=== PATIENT | male | born 1960 | race Hispanic/Latino ===

== ENCOUNTER 2021-08-04 12:37 | Emergency (ER) | payer MEDICARE, MEDICAID ==
--- NOTE | 2021-08-04 13:36 | Emergency Department Report ---
ED General Adult HPI - General Chief complaint: Psych Stated complaint: PSYCH EVALUATION Time Seen by Provider: 08/04/21 13:23 Source: patient, EMS Mode of arrival: Wheelchair Limitations: No Limitations - History of Present Illness Initial comments: Patient was brought in by ambulance from her [facility] due to suicidal thoughts. They were requesting a psychiatric evaluation. Patient states that he had a new roommate. The roommate keeps moving his wheelchair. He has decided he no longer wants to live where he does and is stated that he is suici miguel. When I questioned him, he states that as long as he is got to go back to that particular facility he will be suicidal. He states that if we had a different place for him to live that he would not want to kill himself. He states that he does not want to , he just wants a new place to live. He is not homicidal. He is not hearing voices. He has never tried to harm himself before. - Related Data Allergies Allergy/AdvReac Type Severity Reaction Status Date / Time No Known Allergies Allergy Verified 08/04/21 12:42 ED Review of Systems ROS: Stated complaint: PSYCH EVALUATION Other details as noted in HPI Comment: All other systems reviewed and negative Constitutional: denies: fever Eyes: denies: eye pain ENT: denies: ear pain Respiratory: denies: cough Cardiovascular: denies: chest pain Endocrine: denies: unexplained weight loss Gastrointestinal: denies: abdominal pain Genitourinary: denies: dysuria Musculoskeletal: denies: back pain Skin: denies: rash Neurological: denies: headache Psychiatric: as per HPI Hematological/Lymphatic: denies: easy bruising ED Past Medical Hx - Past Medical History Additional medical history: Developmental delay ED Physical Exam - General Limitations: Physical Limitation (Developmental delay), Other (Pulse ox noted and normal) General appearance: alert, in no apparent distress - Head Head exam: Present: atraumatic, normocephalic - Eye Eye exam: Present: normal appearance, PERRL, EOMI. Absent: scleral icterus - ENT ENT exam: Present: normal orophraynx, normal external ear exam - Neck Neck exam: Present: normal inspection. Absent: meningismus - Respiratory Respiratory exam: Present: normal lung sounds bilaterally. Absent: respiratory distress - Cardiovascular Cardiovascular Exam: Present: regular rate, normal rhythm - GI/Abdominal GI/Abdominal exam: Present: soft. Absent: tenderness - Extremities Exam Extremities exam: Present: normal capillary refill - Back Exam Back exam: Absent: CVA tenderness (R), CVA tenderness (L) - Neurological Exam Neurological exam: Present: alert, oriented X3, CN II-XII intact. Absent: motor sensory deficit - Psychiatric Psychiatric exam: Present: other (Pleasant and interactive. Again, he states that he wants a new place to live.) - Skin Skin exam: Present: warm, dry ED Course Vital Signs 08/04/21 08/04/21 08/04/21 12:39 13:13 13:15 Temperature 98.5 F Pulse Rate 75 Respiratory 18 Rate Blood Pressure Blood Pressure 123/78 [Right] O2 Sat by Pulse 98 98 95 Oximetry 08/04/21 08/04/21 08/04/21 13:30 13:45 14:01 Temperature Pulse Rate Respiratory Rate Blood Pressure 118/74 118/74 103/61 Blood Pressure [Right] O2 Sat by Pulse 97 97 97 Oximetry 08/04/21 08/04/21 08/04/21 14:15 14:31 14:45 Temperature Pulse Rate Respiratory Rate Blood Pressure 103/61 92/71 92/71 Blood Pressure [Right] O2 Sat by Pulse 97 95 96 Oximetry 08/04/21 08/04/21 08/04/21 15:01 15:15 15:31 Temperature Pulse Rate Respiratory Rate Blood Pressure 101/71 101/71 108/68 Blood Pressure [Right] O2 Sat by Pulse 97 97 97 Oximetry 08/04/21 08/04/21 15:45 16:00 Temperature Pulse Rate Respiratory Rate Blood Pressure 108/68 112/67 Blood Pressure [Right] O2 Sat by Pulse 96 96 Oximetry - Reevaluation(s) Reevaluation #1: 08/04/21 13:35 Previous orders have been initiated by another provider. I have requested case management evaluation. Old records noted. Reevaluation #2: 08/04/21 18:45 Patient was medically cleared. Psychiatric services saw the patient and thought that he was impulsive and should potentially be on a hold. They understood that this was likely manipulative behavior and he had done the same getting of his prior living situation. They felt that if the retirement could put him in a different room that they would be comfortable releasing him knowing that this was likely simply manipulative behavior and he would not have the impulse to try to do anything to harm himself. Social work has been involved to try to contact the [facility] and they are not calling back. Multiple messages have been left and they are not calling her answering. At this time, we cannot ascertain the ability for the living facility to place him in a different room with a different roommate. Based on that, we will put him on a hold until either case management can ascertain their ability or until the patient gets placed by psychiatric services since in fact he did state he was suicidal. ED Medical Decision Making - Lab Data Result diagrams: 08/04/21 13:26 08/04/21 13:26 - Medical Decision Making Patient presented with suicidal thoughts as a form of manipulation. He had freely stated that he did not want to go back to his current living situation because he was not happy with his roommate. We attempted to ascertain whether he could be in a different room or have a different roommate. Unfortunately we could not verify that tonight. The facility is not returning pages and messages left on their voicemail. Case management and psychiatric services are both involved. Once we can ascertain a safe disposition for the patient, he will go home. Clinically, I really do not believe he is suicidal. I believe this is manipulative behavior. Critical Care Time: No Critical care attestation.: If time is entered above; I have spent that time in minutes in the direct care of this critically ill patient, excluding procedure time. ED Disposition Clinical Impression: Manipulative behavior, Developmental delay, moderate, Threatening suicide Disposition: 30 STILL A PATIENT Is pt being admited?: No Condition: Stable
[2021-08-04 13:38] LABS: Bacteria,Urine 1+ /HPF (Negative); Bilirubin,Urine NEG (Negative); Blood,Urine NEG (Negative); Color,Urine Straw (Yellow); Protein,Urine <15 mg/dL mg/dL (Negative); Urobilinogen,Urine < 2.0 mg/dL (<2.0)
[2021-08-04 13:43] LABS: Amphetamine Screen,Urine Negative; Benzodiazepines Screen,Urine Negative; Cannabinoid Screen,Urine Negative; Cocaine Screen,Urine Negative; Methadone Screen,Urine Negative; Opiate Screen,Urine Negative
[2021-08-04 13:48] LABS: Basophils # (Auto) 0.1 K/mm3 (0.0-0.1); Basophils % (Auto) 1.2 % (0.0-1.8); Eosinophils # (Auto) 0.1 K/mm3 (0.0-0.4); Eosinophils % (Auto) 0.8 % (0.0-4.3); Hemoglobin 16.9 gm/dl (11.8-15.2); Lymphocytes # (Auto) 1.9 K/mm3 (1.2-5.4); Lymphocytes % (Auto) 17.9 % (13.4-35.0); Mean Corpuscular HGB Conc 33 % (32-34); Mean Corpuscular Volume 90 fl (84-94); Monocytes # (Auto) 0.6 K/mm3 (0.0-0.8); Platelet Count 238 K/mm3 (140-440); Red Blood Count 5.69 M/mm3 (3.65-5.03); Red Cell Distribution Width 13.8 % (13.2-15.2)
[2021-08-04 14:02] LABS: Blood Urea Nitrogen 13 mg/dL (9-20); Calcium 9.6 mg/dL (8.4-10.2); Hemolysis Index 49
[2021-08-04 14:11] LABS: BUN/Creatinine Ratio 22
[2021-08-05 08:59] VITALS: BP 138/68
--- NOTE | 2021-08-05 10:33 | Consultation ---
History of Present Illness - Reason for Consult Consult date: 08/05/21 Reason for consult: suicidal ideation - History of Present Psychiatric Illness ED Note: Patient was brought in by ambulance from her nursing home due to suicidal thoughts. They were requesting a psychiatric evaluation. Patient states that he had a new roommate. The roommate keeps moving his wheelchair. He has decided he no longer wants to live where he does and is stated that he is suicidal. When I questioned him, he states that as long as he is got to go back to that particular facility he will be suicidal. He states that if we had a different place for him to live that he would not want to kill himself. He states that he does not want to , he just wants a new place to live. He is not homicidal. He is not hearing voices. He has never tried to harm himself before. The patient is a 61 year old male who presents to the ED with suicidal ideation. In my encounter with the patient, he is a calm and oriented to self. The patient states that he want to kill himself because he does not like where he lives. The patient is labile. He was heard saying " I want to go home " when asked if he wants to go back to the same long term? he states "yes." The patient endorses auditory and visual hallucinations but does not know what the voices are saying. PAST PSYCHIATRIC HISTORY PAST MEDICAL HISTORY: None reported Family Psychiatric History: None reported or documented SOCIAL HISTORY REVIEW OF SYSTEMS Constitutional: Negative for weight loss ENT: Negative for stridor Respiratory: Negative for cough or hemoptysis All other systems reviewed and are negative MENTAL STATUS EXAMINATION General Appearance and Behavior: Age appropriate, not wearing appropriate clothes, fair eye contact, Cooperation: Engaged Psychomotor Behavior: Psychomotor normal Mood: calm Affect and affective range: Congruent with stated mood Thought Process: labile Thought Content: Suicidal Speech: Normal tone and pace Suicidal Ideation: Yes Homicidal Ideation: Denies Hallucinations: Yes Delusions:None Insight and Judgment: Limited insight and judgment Memory: Normal Attention: divided attention impaired Orientation: Alert, oriented Assessment: (1) Major depressive disorder (2) 1013 Treatment Plan Continue home medications. Effexor 25mg po daily Risks, benefits and alternatives of medications discussed with the patient, questions answered and consent obtained from patient. PSYCHOTHERAPY: Supportive psychotherapy provided MEDICAL: Per primary team DELIRIUM PRECAUTIONS: Please re-orient patient frequently, keep lights on during the day, and minimize benzodiazepines and opiates as these medications could worsen patient's confusion. REGIONAL DIRECTOR OF ADMISSIONS: per primary DISPOSITION: Recommend acute psychiatric inpatient treatment. Will follow. Thanks Thank you for the consult. Case discussed with Dr. Mon who agrees with current disposition Medications and Allergies Medications and Allergies Allergies Allergy/AdvReac Type Severity Reaction Status Date / Time No Known Allergies Allergy Verified 08/04/21 12:42 Mental Status Exam - Vital signs Last Vital Signs Temp 97.2 F L 08/05/21 08:58 Pulse 89 08/05/21 08:58 Resp 18 08/05/21 08:58 BP 138/68 08/05/21 08:58 Pulse Ox 97 08/05/21 08:59 Results Result Diagrams: 08/04/21 13:26 08/04/21 13:26 Abnormal lab results 08/04/21 08/04/21 08/04/21 Range/Units 13:23 13:26 13:26 RBC (3.65-5.03) M/mm3 Hgb (11.8-15.2) gm/dl Hct (35.5-45.6) % Seg Neutrophils % (40.0-70.0) % Seg Neutrophils # (1.8-7.7) K/mm3 Sodium (137-145) mmol/L Chloride (98-107) mmol/L Carbon Dioxide (22-30) mmol/L Creatinine (0.8-1.3) mg/dL Urine WBC (Auto) 7.0 H (0.0-6.0) /HPF Salicylates < 0.3 L (2.8-20.0) mg/dL Acetaminophen 5.0 L (10.0-30.0) ug/mL 08/04/21 08/04/21 Range/Units 13:26 13:26 RBC 5.69 H (3.65-5.03) M/mm3 Hgb 16.9 H (11.8-15.2) gm/dl Hct 51.0 H (35.5-45.6) % Seg Neutrophils % 74.1 H (40.0-70.0) % Seg Neutrophils # 7.9 H (1.8-7.7) K/mm3 Sodium 134 L (137-145) mmol/L Chloride 96.5 L (98-107) mmol/L Carbon Dioxide 21 L (22-30) mmol/L Creatinine 0.6 L (0.8-1.3) mg/dL Urine WBC (Auto) (0.0-6.0) /HPF Salicylates (2.8-20.0) mg/dL Acetaminophen (10.0-30.0) ug/mL All other labs normal.
[2021-08-05] MEDS ORDERED: VENLAFAXINE 25 MG TAB PO SCH (11:00)
--- NOTE | 2021-08-05 12:08 | Emergency Department Report ---
Blank Doc - Documentation Documentation: Patient has a labile affect. He has been seen by psychiatric services. They are planning on admitting him to general psych. He will be discharged from the ED so he can be admitted to general psych.
== END 2021-08-05 20:00 | disposition home or self-care (01) ==
LOC: ED 12:37
DX: R45.851 Suicidal ideations (principal); F60.9 Personality disorder, unspecified; R62.50 Unspecified lack of expected normal physiological development in childhood; Z20.822 Contact with and (suspected) exposure to COVID-19
CPT/HCPCS: 36415; 80048; 80307; 81001; 85025; 99285; U0003; 80320; G0480

== ENCOUNTER 2021-10-27 08:16 | Day surgery (SDC) | payer MEDICARE, MEDICAID ==
[2021-10-27 09:20] LABS: Hemoglobin 15.9 gm/dl (11.8-15.2); Mean Corpuscular HGB Conc 34 % (32-34); Mean Corpuscular Volume 89 fl (84-94); Platelet Count 269 K/mm3 (140-440); Red Blood Count 5.31 M/mm3 (3.65-5.03); Red Cell Distribution Width 13.8 % (13.2-15.2)
[2021-10-27 09:33] LABS: INR 1.02 (0.87-1.13)
[2021-10-27 09:34] LABS: Partial Thromboplastin Time 25.9 Sec. (24.2-36.6)
[2021-10-27 09:42] LABS: BUN/Creatinine Ratio TNR; Blood Urea Nitrogen TNR mg/dL (9-20); Calcium TNR mg/dL (8.4-10.2); Hemolysis Index TNR
[2021-10-27] MEDS ORDERED: SODIUM CHLORIDE IRRI 1000 ML 1,000 ML, .VANCOMYCIN VIAL 1,000 MG IR NR (10:00)
[2021-10-27] MEDS ORDERED: SODIUM CHLORIDE 0.45% 1000 ML 1,000 ML IV SCH (10:00)
[2021-10-27] MEDS ORDERED: ceFAZolin/Water 2 GM/20 ML 2 GM/20 ML SYRINGE IV NR (10:00)
--- NOTE | 2021-10-27 10:46 | Electrocardiograph Report ---
[facility] Test Date: 2021-10-27 Test Time: 09:26:17 Pat Name: HOLLY FERNANDO Department: Room: Gender: M Land Classifier: [id number] : [id number] Requested By: BETH GARCIA Order Number: [id number] Reading MD: Modesto Bonner Measurements Intervals [place] Rate: 67 P: 0 AL: 224 QRS: -79 QRSD: 162 T: QT: 464 QTc: 491 Interpretive Statements Ventricular-paced rhythm No previous ECG available for comparison Electronically Signed On 10-27-2021 10:46:02 EDT by Modesto Bonner
[2021-10-27] MEDS ORDERED: SODIUM CHLORIDE IRRI 500 ML 500 ML IR ONE (11:05)
[2021-10-27] MEDS ORDERED: LIDOCAINE (1%) 10 MG/1 ML VIAL 20 ML MDV ONE (11:05)
[2021-10-27] MEDS ORDERED: ceFAZolin/Water 2 GM/20 ML 2 GM/20 ML SYRINGE IV ONE (11:06)
[2021-10-27] MEDS ORDERED: BUPIVACAINE/PF (0.5%) 5 MG/1 ML 30 ML VIAL INFILTRATI ONE (11:06)
[2021-10-27 11:25] LABS: Blood Urea Nitrogen 11 mg/dL (9-20); Calcium 8.6 mg/dL (8.4-10.2); Hemolysis Index 7
[2021-10-27 11:27] LABS: BUN/Creatinine Ratio 18
[2021-10-27] MEDS ORDERED: MIDAZOLAM 2 MG/2 ML INJ ONE (11:34)
[2021-10-27] MEDS ORDERED: fentaNYL 100 MCG/2 ML INJ ONE (11:35)
[2021-10-27] MEDS ORDERED: HEPARIN 10,000 UNITS/10 ML VIAL ONE (14:00)
--- NOTE | 2021-10-27 14:13 | Cardiac Catherization Report ---
DATE OF PROCEDURE: 10/27/2021 PROCEDURE: Replacement of a pulse generator. PREOPERATIVE DIAGNOSIS: Sick sinus syndrome. POSTOPERATIVE DIAGNOSIS: Sick sinus syndrome. DESCRIPTION OF PROCEDURE: The patient was brought to the lab in the fasting state. After consent was obtained, patient was placed on the table and left precordial area was prepped and draped. The patient had then received preop antibiotics injection. A timeout was then obtained and the patient was then sedated with 2 mg of Versed and 25 mcg of fentanyl. The previous pacemaker pocket was located and local anesthesia was achieved using Xylocaine injections at the area. Incision was made about the previous pacemaker pocket and using blunt dissection, the pacemaker pocket was isolated and pulse generator was removed. The ventricular and left atrial leads were both disconnected from the pacemaker pulse generator and both leads were then evaluated and found to be in satisfactory condition. The new pulse generator [employer] MRI [id number], serial #[id number] was then connected to the ventricle and atrial leads. This pulse generator was then placed in the pocket, which had previously been flushed out with antibiotic solution. The pacemaker pocket was then closed using reabsorbable subcutaneous stitches and then glue to the skin. The patient tolerated procedure well and left lab in stable condition. TID: [id number] RECEIPT: [id number] DENY/OSMIN/ROWENA
[2021-10-27 14:48] VITALS: BP 134/84
== END 2021-10-27 08:17 | disposition home or self-care (01) ==
LOC: CATHLABREC 08:16
PROVIDERS: ATTEND Internal Medicine Cardiovascular Disease
DX: Z45.010 Encounter for checking and testing of cardiac pacemaker pulse generator [battery] (principal); I49.5 Sick sinus syndrome; I10 Essential (primary) hypertension; I25.10 Atherosclerotic heart disease of native coronary artery without angina pectoris; N40.0 Benign prostatic hyperplasia without lower urinary tract symptoms; F25.0 Schizoaffective disorder, bipolar type; F03.90 Unspecified dementia, unspecified severity, without behavioral disturbance, psychotic disturbance, mood disturbance, and anxiety; Z79.899 Other long term (current) drug therapy; Z98.890 Other specified postprocedural states
CPT/HCPCS: 33228; 36415; 80048; 85027; 85610; 85730; 93005; C1785; J0690; J2250; J3010; J3370; J3490; J7030; J1644